=== PATIENT | female | born 1950 | race Caucasian/White ===

== ENCOUNTER → 2022-09-23 07:38 | Outpatient (REF) | payer MEDICARE, SELFPAY ==
[2022-09-23 07:49] LABS: MANUAL DIFF FLAG NO
--- NOTE | 2022-09-23 07:50 | ECG_ITS ---
Test Reason : htn Blood Pressure : / mmHG Vent. Rate : 085 BPM Atrial Rate : 085 BPM P-R Int : 144 ms QRS Dur : 128 ms QT Int : 408 ms P-R-T Axes : 043 -14 026 degrees QTc Int : 485 ms Normal sinus rhythm Premature atrial complexes Right bundle branch block Abnormal ECG No previous ECGs available Referred By: Elizabeth Domingo Electronically Signed By:JUANJO GRAHAM
[2022-09-23 08:16] LABS: Basophils Absolute Auto 0.1 X10*3/uL (0.0-0.2); Basophils Percent Auto 0.6 % (0-2); Eosinophils Absolute Auto 0.3 X10*3/uL (0.0-0.4); Eosinophils Percent Auto 2.8 % (0-4); Hematocrit 46.9 % (37.0-47.0); Hemoglobin 15.9 g/dl (12.0-16.0); Imm Gran Abs Auto 0.05 X10*3/uL (0.00-0.03); Imm Gran Pct Auto 0.5 % (0.0-0.4); Lymphocytes Absolute Auto 3.4 X10*3/uL (1.2-4.9); Lymphocytes Percent Auto 30.9 % (20-40); Mean Corpuscular HGB Conc 33.9 g/dl (31.0-35.0); Mean Corpuscular Hemoglobin 30.7 pg (27.0-33.0); Mean Corpuscular Volume 90.5 fL (80.0-98.0); Monocytes Absolute Auto 0.9 X10*3/uL (0.1-1.2); Monocytes Percent Auto 7.9 % (2-11); Neutrophils Absolute Auto 6.2 x10*3/uL (2.0-8.3); Neutrophils Percent Auto 57.3 % (45-73); Platelet Count 207 X10*3/uL (160-400); Red Blood Count 5.18 X10*6/uL (4.20-5.50); Red Cell Distribution Width 13.3 % (11.0-16.0); White Blood Count 10.8 X10*3/uL (4.8-10.8)
[2022-09-23 08:56] LABS: Alanine Aminotransferase 30 U/L (0-31); Albumin Level 4.7 g/dL (3.5-5.0); Alkaline Phosphatase 117 U/L (39-117); Anion Gap 16 (12-20); Aspartate Amino Transferase 29 U/L (5-31); Bilirubin Total 0.9 mg/dL (0.0-1.0); Blood Urea Nitrogen 18 mg/dL (9-16); Calcium 9.9 mg/dL (8.4-10.2); Carbon Dioxide 28 mmol/L (22-29); Chloride 105 mmol/L (96-108); Cholesterol 234 mg/dL; Estimated Glomerular Filt Rate > 60; Glucose Fasting 106 mg/dL (60-99); HDL Cholesterol 46 mg/dL; LDL Cholesterol Calculated 152 mg/dl; Potassium 4.6 mmol/L (3.3-5.1); Sodium 144 mmol/L (135-145); Total Protein 7.9 g/dL (6.5-8.0); Triglycerides 181 mg/dL
[2022-09-23 09:01] LABS: TSH reflex Free T4 4.33 uIU/mL (0.32-4.0); Vitamin D 25-OH Total 46.7 ng/mL (>30)
[2022-09-23 09:14] LABS: Folate 18.8 ng/mL (> or = 4.0); Vitamin B12 750 pg/mL (200-900)
[2022-09-23 09:42] LABS: Free T4 (Free Thyroxine) 0.87 ng/dL (0.71-1.85)
== END ==
LOC: HO.CARD 07:38
PROVIDERS: PCP Nurse Practitioner Family; Visit Provider Nurse Practitioner Family
DX: I10 Essential (primary) hypertension (principal); Z76.89 Persons encountering health services in other specified circumstances
CPT/HCPCS: 36415; 80053; 80061; 82306; 82607; 82746; 84439; 84443; 85025; 93005

== ENCOUNTER 2024-01-23 15:31 | Outpatient (AMB) | payer MEDICARE, SELFPAY ==
--- NOTE | 2024-01-23 15:33 | A.OFFVIS_ITS ---
Intake Vital Signs 01/23/24 15:38 Height 4 ft 11 in Weight 201 lb 2 oz BMI 40.6 BP 138/80 Blood Pressure Location Lt brachial Position Sitting Pulse 110 H Pulse Source Pulse Oximeter Pulse Oximetry (%) 98 Oxygen Delivery Method Room Air Intake Visit Reasons: AWV Intake Note: Patient is here for an Annual Wellness Visit. Postal Inspector Required: No Animal Control Licensing Worker: Animal Control Licensing Worker Present and Animal Control Licensing Worker offered & declined Accompanied by: Daughter Allergies green dye Adverse Reaction (Mild, Uncoded 01/23/24 15:55) Rash Medication List - Last Reconciled 01/23/24 by Stan Tovar MD atenolol 50 mg PO DAILY 90 days multivitamin 1 tab PO DAILY HPI AWV HPI Details Patient comes in today for her Annual Medicare Wellness Exam and follow up visit States that she currently feels okay She admits to not taking her Atenolol for the past 3 months States that she checks her blood pressure regularly and has noticed that her blood pressure often seems to be much lower than before and she stopped taking her Atenolol as she is concerned that her blood pressure may go too low States that in the past 3 months, she has taken her Atenolol no more than 2 to 3 times and eventually stopped taking them Notes that her systolic blood pressure lately has always been between 110 to 130 mm and often around the 118 to 120 mm rebeca States that she's had no recent symptoms of chest pains/pressure, SOB or palpitations She denies any headaches States that she frequently experiences dizziness but has been this way all her life as 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 Medical / Social History Reviewed Past Medical History Yes . [place] of Care / Care Team list updated Yes . Surgical/Hospitalization History Yes . Current Medications (including OTC and supplements) Yes . Family History Yes . Tobacco Control form Yes . AUDIT-C (Alcohol use) form Yes . Illicit drug use in Social History Yes . Current diagnosis of depression? No Appropriate PHQ2/PHQ9 completed Yes . Data entered by Roller Operator and reviewed by provider Home Safety Throw rugs? No Grab bars? No Raised toilet seats? No Working smoke detectors? Yes Working carbon monoxide detectors? Yes Data entered by Roller Operator and reviewed by provider Activities of Daily Living (ADLs) Difficulty bathing or showering? No Difficulty dressing? No Difficulty using the toilet? No Difficulty getting in and out of bed? No Difficulty walking? No Receives help from another person with any of the above tasks? No Instrumental Activities of Daily Living (IADLs) Uses the telephone without help Gets to places out of walking distance with help Goes shopping for groceries with help Prepares own meals without help Does own minor home maintenance without help Does own laundry without help Does own housework without help Manages own money without help Currently takes medications? Yes Takes medication without help End-of-Life Planning Discussed advance directive Yes Advance directive on file Discussed wishes expressed in advance directive agreed to following patient's wishes Fall Risk: Fall History Have you had any falls with injury in the past year? No . Have you had two or more falls in the past year? No . Fall Risk Assessment: No falls in the past year . HRA filled out by the patient, reviewed by Provider and scanned. [facility] Medical History (Updated 01/23/24 @ 16:54 by Stan Tovar MD) Morbid obesity with BMI of 40.0-44.9, adult Microtia of left ear GERD (gastroesophageal reflux disease) Mixed hyperlipidemia Essential hypertension Surgical History S/P right rotator cuff repair History of ear surgery History of hysterectomy Family History Father Diabetes Mother Lung cancer Brother Hemochromatosis Brother Hemochromatosis Social History Housing: Condominium Alcohol intake: never Patient Tobacco Use Status: Never used Tobacco Second Hand Smoke Exposure: No service: No Cognitive needs: Yes Hearing needs: No Vision needs: Yes Questionnaire Medicare Wellness Checkup [age] What gender do you identify with?: female During the past 4 weeks, how much have you been bothered by emotional problems such as feeling anxious, depressed, irritable, sad or downhearted, and blue?: slightly During the past 4 weeks, has your physical & emotional health limited your social activities with family, friends, neighbors, or groups?: not at all During the past 4 weeks, how much bodily pain have you generally had?: no pain During the past 4 weeks, was someone available to help you if you needed & wanted help?: yes, as much as I wanted During the past 4 weeks, what was the hardest physical activity you could do for at least 2 minutes?: moderate Can you get to places out of walking distance without help? (For eg., can you travel alone on buses, taxis or drive your car?): No Can you go shopping for groceries or clothes without someone's help?: Yes (Daughter drop her off at the store) Can you prepare your own meals?: Yes Can you do your housework without help?: Yes Because of any health problems, do you need the help of another person with your personal care needs such as eating, bathing, dressing or getting around the house?: No Can you handle your own money without help?: Yes During the past 4 weeks, how would you rate your health in general?: good During the past 4 weeks how have things been going for you?: pretty well Are you having difficulties driving your car?: not applicable, I don't use a car Do you always fasten your seat belt when you are in a car?: yes, usually During past 4 weeks, have you been bothered by the following: never: Sexual problems?, Trouble eating well? and Teeth or denture problems? and sometimes: Falling or dizzy when standing up, Problems using the telephone? and Tiredness or fatigue? Have you fallen 2 or more times in the past year?: No Are you afraid of falling?: No Are you a smoker?: no During the past 4 weeks, how many drinks of wine, beer, or other alcoholic beverages did you have?: no alcohol at all Do you exercise for about 20 minutes 3 or more times a week?: no, I usually do not exercise this much Have you been given information to help with the following?: no: Hazards in your house that might hurt you? and no: Keeping track of your medications? How often do you have trouble taking medicines the way you have been told to take them?: I always take medicine as prescribed How confident are you that you can control & manage most of your health problems?: very confident What is your race?: White Mini Mental State Exam (MMSE) Orientation What is the (year) (season) (date) (day) (month)?: year, season, date, day and month Where are we (state) (county) (town or city) (hospital) (floor)?: state, county, town or city, hospital/clinic and floor Score Score: 10 Activity of Daily Living Bathing - sponge bath, tub bath or shower: receives no assistance (gets in/out by self, if usual bathing means Dressing - getting clothes from closets & drawers, including inner/outer garments & fasteners.: gets clothes & gets completely dressed without help Toileting - going to the 'toilet room' for urine/bowel elimination & cleaning self/arranging clothes: goes to toilet room, cleans self, arranges clothes without help Transfer: moves in & out of bed and chair without help (may use support object) Continence: controls urination/bowel movements completely by self Feeding: feeds self without help Total Score: 0 Information obtained from: patient Using telephone: independent Traveling: needs assistance Shopping: needs assistance Preparing meals: independent Housework: independent Taking medicine: independent Managing money: independent PHQ-9 Over the last 2 weeks, how often have you been bothered by any of the following problems? 1. Little interest or pleasure in doing things: not at all 2. Feeling down, depressed, or hopeless: not at all 3. Trouble falling or staying asleep, or sleeping too much: several days 4. Feeling tired or having little energy: several days 5. Poor appetite or overeating: nearly every day 6. Feeling bad about yourself - or that you are a failure or have let yourself or your family down: not at all 7. Trouble concentrating on things, such as reading the newspaper or watching television: more than half the days 8. Moving or speaking so slowly that other people could have noticed. Or the opposite - being so fidgety or restless that you have been moving around a lot more than usual: not at all 9. Thoughts that you would be better off or of hurting yourself in some way: not at all Total score: 7 Depression Screening Interpretation: Positive Depression Screening Follow-up: Declines treatment Depression Screening Done: Yes 23638 - PHQ-9 Billing: Yes Source: Developed by Drs. Richmond Moore, Lucrecia Lan, Gopi Martinez and colleagues, with an educational flor from [employer]. Thrive Questionnaire Date Thrive assessed: 01/23/24 I am a: Patient What is your living situation today?: I have a steady place to live Within the past 12 months, did the food you bought not last and you didn't have the money to get more?: Never true Within the past 12 months, did you worry whether your food would run out before you got money to buy more?: Never true Do you have trouble paying for medicines?: No Do you have trouble getting transportation to medical appointments?: No Do you have trouble paying your heating and electricity bill?: No Do you have trouble taking care of your child, family member or friend?: No Do you have trouble with day-to-day activities such as bathing, preparing meals, shopping, managing finances, etc.?: No Are you currently unemployed and looking for a job?: No Are you interested in more education?: No Currently or been in a relationship where the following occur: no concerns reported THRIVE Score: 0 KRYSTIAN-7 AMB Questionnaire KRYSTIAN-7 Date KRYSTIAN - 7 assessed: 01/23/24 Feeling nervous, anxious, or on edge: 0 = Not at all Not being able to stop or control worryin = Not at all Worrying too much about different things: 0 = Not at all Trouble relaxin = Not at all Being so restless that it is hard to sit still: 0 = Not at all Becoming easily annoyed or irritable: 0 = Not at all Feeling afraid as if something awful might happen: 0 = Not at all Total KRYSTIAN-7 score (0-4 normal; 5-9 mild; 10-14 moderate; 15-21 severe): 0 Source: Developed by Drs. Richmond LLucrecia Jensen Kurt Kroenke and colleagues, with an educational flor from [employer]. AUDIT C Alcohol Use Questionnaire (AUDIT-C) 1. How often do you have a drink containing alcohol?: Never 2. How many drinks containing alcohol do you have on a typical day when you are drinking?: 1 or 2 3. How often do you have six or more drinks on one occasion?: Never Total Score: 0 Score Reviewed/Action Taken: Yes Review of Systems Const Denies chills, Denies fatigue, Denies fever(s), Denies headache(s) and Denies malaise Eyes Denies blurry vision, Denies change in vision, Denies irritation and Denies itchy eyes ENT Denies dysphagia, Denies dizziness, Denies otalgia, Denies headache(s), Denies nasal congestion, Denies neck pain, Denies odynophagia, Denies sinus pain and Denies sore throat Card Denies chest pain, Denies rapid heart rate, Denies irregular heart rhythm, Denies palpitations and Denies dyspnea Resp Denies chest congestion, Denies cough, Denies dyspnea and Denies wheezing GI Denies abdominal pain, Denies bloating, Denies constipation, Denies dysphagia, Denies heartburn, Denies diarrhea, Denies nausea, Denies odynophagia and Denies vomiting Denies hematuria, Denies change in libido, Denies urinary frequency, Denies dysuria, Denies urinary incontinence and Denies urinary urgency Musc Denies back pain, Denies arthralgias, Denies joint swelling, Denies muscle weakness and Denies neck pain Skin/Breast Denies breast pain, Denies breast mass, Denies change in pigmentation, Denies lesions, Denies rash and Denies unusual bruising Neuro Denies dizziness, Denies headache(s) and Denies paresthesias Psych Denies anxiety, Denies change in libido, Denies depression and Denies homicidal ideation Endo Denies change in libido, Denies fatigue and Denies palpitations Abrahan/Lymph Denies easy bruising Aller/Immun Denies itchy eyes and Denies wheezing Physical Exam Vital Signs: Last Vital Signs Pulse 110 H 01/23/24 15:38 BP 138/80 01/23/24 15:38 Pulse Ox 98 01/23/24 15:38 Oxygen Delivery Method Room Air 01/23/24 15:38 BMI result Body Mass Index 40.6 IPPE/SWV: Balance Romberg Yes . Tandem walk Yes . Walk and Turn Yes . Rise from sit to stand Yes . Vision Corrective lens No Vision screen pass Hearing Whisper test fail . Urinary incont. no. EKG Not clinically necessary. Const General: no acute distress, alert and awake Orientation/consciousness: patient oriented x3 HEENT Head: Yes normocephalic and Yes atraumatic Ears: external ears normal, TM's normal bilaterally and EAC's normal General nose exam: No nasal discharge present Face and sinus: Yes normal facial exam and Yes sinuses nontender Teeth and gingiva: dentition normal Throat: Yes posterior oropharynx normal and Yes tonsils normal (no TP congestion) Eyes Eyelids: Yes eyelids normal Conjunctivae: conjunctivae normal Pupils: Equal, round and reactive pupils present EOM: EOMs intact bilaterally Neck Neck: Yes no lymphadenopathy and Yes supple Thyroid: Thyroid normal Resp Auscultation: clear to auscultation bilaterally, no rales and no wheezes Cardio Rate: tachycardic Rhythm: regular rhythm Heart sounds: no murmurs GI Palpation (GI): Soft to palpation, nontender and No hepatosplenomegaly present Auscultation: normal bowel sounds General: Yes no CVA tenderness Back/Spine/Pelvis Back: no CVA tenderness Thoracic/Lumbar Spine: thoracic and lumbar spine normal to inspection Skin Lesions: no lesions Rashes: no rashes Neuro General: patient oriented x3, moves all extremities, no focal motor deficits and CN's II-XI intact bilaterally Cranial nerves: Yes Equal, round and reactive pupils present Cognition (Neuro): normal cognition Gait exam (Neuro): Normal gait present Extrem General: Yes no clubbing, cyanosis or edema Assessment & Plan Assessment & Plan (1) Medicare annual wellness visit, subsequent: Code(s): Z00.00 - Encounter for general adult medical examination without abnormal f indings Plan: HRA form discussed and completed with patient - form will be scanned into patient's chart Patient has and continues to decline going for screening colonoscopy, annual mammgram and routine pap smear/gynecology exam (2) Essential hypertension: Code(s): I10 - Essential (primary) hypertension Plan: Reinforced low sodium diet - goal is systolic BP of 130 to 140 mm or less She was on Atenolol 50 mg QD but admits that she has literally stopped taking her Rx about 3 months ago as she was concerned about her blood pressure getting too low She is advised to HOLD OFF on starting back on her Rx at this time and to continue monitoring her blood pressure regularly (3) Mixed hyperlipidemia: Code(s): E78.2 - Mixed hyperlipidemia Plan: She is advised that her cholesterol levels were elevated when she had her labs done early last year Reinforced low cholesterol diet She has expressed her reluctance in taking any Rx for cholesterol as she strongly believes that cholesterol-lowering medications can cause severe muscle pains Will have her recheck her labs and fasting lipids ANGE for follow up (4) GERD (gastroesophageal reflux disease): Code(s): K21.9 - Gastro-esophageal reflux disease without esophagitis Qualifiers: Esophagitis presence: without esophagitis Qualified Code(s): K21.9 - Gastro-esophageal reflux disease without esophagitis Plan: Dietary restrictions reinforced She used to take Omeprazole years ago but states that she has not needed anything for heartburns over the past few years (5) Microtia of left ear: Code(s): Q17.2 - Microtia Plan: This is a congenital condition (6) Morbid obesity with BMI of 40.0-44.9, adult: Code(s): E66.01 - Morbid (severe) obesity due to excess calories; Z68.41 - Body mass ind ex [BMI] 40.0-44.9, adult Plan: Reinforced diet/exercise as tolerated/lose weight Plan To return in 1 year for her next Medicare Annual Wellness Exam Orders: Orders Complete Blood Count Auto Diff Today D64.9 - Anemia, unspecified Lipid Panel Today E78.00 - Pure hypercholesterolemia, unspecified UA CC w/rflx Micro + Cult Today R30.0 - Dysuria TSH reflex Free T4 Today E78.00 - Pure hypercholesterolemia, unspecified Vitamin D 25-OH Total Today E55.9 - Vitamin D deficiency, unspecified Comprehensive [place]. Panel Fast Today E78.00 - Pure hypercholesterolemia, unspecified Vitamin B12 and Folate Today E53.8 - Deficiency of other specified B group vitamins Magnesium Today E83.42 - Hypomagnesemia Quality Reporting (2019) Depression/Bipolar (159/160/161/177) PHQ-9: Total score: 7 Coding Level of Care Code Medicare Subsequent (G0439) Est Pt Level 4 (27197) Diagnoses Medicare annual wellness visit, subsequent Z00.00 Essential hypertension I10 Mixed hyperlipidemia E78.2 Gastroesophageal reflux disease without esophagitis K21.9 Esophagitis presence: without esophagitis Microtia of left ear Q17.2 Morbid obesity with BMI of 40.0-44.9, adult E66.01; Z68.41
[2024-01-23 15:38] VITALS: BP 138/80; PULSE 110; O2SAT 98; BMI 40.6
== END 2024-01-23 16:16 | disposition home or self-care (01) ==
PROVIDERS: PCP Nurse Practitioner Family; Visit Provider Internal Medicine
DX: Z00.00 Encounter for general adult medical examination without abnormal findings (principal); E66.01 Morbid (severe) obesity due to excess calories; Z68.41 Body mass index [BMI] 40.0-44.9, adult; I10 Essential (primary) hypertension; E78.2 Mixed hyperlipidemia; K21.9 Gastro-esophageal reflux disease without esophagitis; Q17.2 Microtia
CPT/HCPCS: 99214; G0439

== ENCOUNTER 2024-01-24 09:20 | Outpatient (REF) | payer MEDICARE, SELFPAY ==
[2024-01-24 09:38] LABS: MANUAL DIFF FLAG NO
[2024-01-24 10:02] LABS: Basophils Absolute Auto 0.1 X10*3/uL (0.0-0.2); Basophils Percent Auto 0.9 % (0-2); Eosinophils Absolute Auto 0.3 X10*3/uL (0.0-0.4); Eosinophils Percent Auto 2.9 % (0-4); Hematocrit 47.4 % (37.0-47.0); Hemoglobin 16.1 g/dl (12.0-16.0); Imm Gran Abs Auto 0.04 X10*3/uL (0.00-0.03); Imm Gran Pct Auto 0.4 % (0.0-0.4); Lymphocytes Absolute Auto 2.6 X10*3/uL (1.2-4.9); Lymphocytes Percent Auto 27.7 % (20-40); Mean Corpuscular Hemoglobin 31.2 pg (27.0-33.0); Mean Corpuscular Volume 91.9 fL (80.0-98.0); Mean Platelet Volume 10.9 fL (9.4-12.3); Monocytes Absolute Auto 0.8 X10*3/uL (0.1-1.2); Monocytes Percent Auto 8.1 % (2-11); Neutrophils Absolute Auto 5.6 x10*3/uL (2.0-8.3); Platelet Count 216 X10*3/uL (160-400); Red Blood Count 5.16 X10*6/uL (4.20-5.50); Red Cell Distribution Width 13.8 % (11.0-16.0); White Blood Count 9.3 X10*3/uL (4.8-10.8)
[2024-01-24 10:37] LABS: Alanine Aminotransferase 58 U/L (0-31); Albumin Level 4.5 g/dL (3.5-5.0); Alkaline Phosphatase 114 U/L (39-117); Anion Gap 14 (12-20); Aspartate Amino Transferase 50 U/L (5-31); Bilirubin Total 0.9 mg/dL (0.0-1.0); Blood Urea Nitrogen 11 mg/dL (9-16); Carbon Dioxide 28 mmol/L (22-29); Chloride 105 mmol/L (96-108); Cholesterol 229 mg/dL (<200); Estimated Glomerular Filt Rate > 60; Glucose Fasting 100 mg/dL (60-99); HDL Cholesterol 49 mg/dL (>40); LDL Cholesterol Calculated 148 mg/dL (<100); Magnesium 2.3 mg/dL (1.6-2.6); Potassium 4.6 mmol/L (3.3-5.1); Sodium 142 mmol/L (135-145); Total Protein 8.3 g/dL (6.5-8.0); Triglycerides 162 mg/dL (<150)
[2024-01-24 10:53] LABS: TSH reflex Free T4 2.93 uIU/mL (0.32-4.0)
[2024-01-24 12:10] LABS: Folate 18.6 ng/mL (> or = 4.0)
[2024-01-24 13:38] LABS: Vitamin B12 885 pg/mL (200-900)
== END 2024-01-24 09:21 | disposition home or self-care (01) ==
LOC: HO.LAB 09:20
PROVIDERS: PCP Internal Medicine; Visit Provider Internal Medicine
DX: E78.00 Pure hypercholesterolemia, unspecified (principal); R30.0 Dysuria; E55.9 Vitamin D deficiency, unspecified; E53.8 Deficiency of other specified B group vitamins; E83.42 Hypomagnesemia; D64.9 Anemia, unspecified
CPT/HCPCS: 36415; 80053; 80061; 82306; 82607; 82746; 83735; 84443; 85025

== ENCOUNTER 2025-05-30 15:52 | Outpatient (AMB) | payer MEDICARE, SELFPAY ==
[2025-05-30 16:22] VITALS: BP 136/80; PULSE 102; O2SAT 94; BMI 40.5
--- NOTE | 2025-05-30 16:22 | A.OFFPC_ITS ---
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 Accompanied by: Self / Same As Patient Allergies green dye Adverse Reaction (Mild, Uncoded 05/31/25 04:18) Rash Medication List - Last Reconciled 05/31/25 by Stan Tovar MD multivitamin 1 tab PO DAILY Tobacco use date assessed: 05/30/25 Fall risk assessment: No Falls in past year Last assessed Fall Risk: 05/30/25 Dental Screening Dental Screen Date: 05/30/25 Did you have a dental visit in the last 12 months?: No Did you have a dental problem in the last 6 months where you did not have access to dental care?: No Was dental information given to patient?: No HPI f/u HPI Details Patient comes in today for her follow-up visit - she was last seen here over a year ago in December 2023 States that she feels okay She denies any headaches or dizziness Denies any chest pains, no shortness of breath No nausea/vomiting, no abdominal pain No change in bowel habits noted She had follow-up labs done last year, right after her office visit, and has had no other follow-up labs done since [facility] Medical History Morbid obesity with BMI of 40.0-44.9, adult Microtia of left ear GERD (gastroesophageal reflux disease) Mixed hyperlipidemia Essential hypertension Surgical History S/P right rotator cuff repair History of ear surgery History of hysterectomy Family History Father Diabetes Mother Lung cancer Brother Hemochromatosis Brother Hemochromatosis Social History Housing: Condominium Alcohol intake: never Patient Tobacco Use Status: Never used Tobacco Second Hand Smoke Exposure: No service: No Cognitive needs: Yes Hearing needs: No Vision needs: Yes Questionnaire PHQ-9 Over the last 2 weeks, how often have you been bothered by any of the following problems? 1. Little interest or pleasure in doing things: not at all 2. Feeling down, depressed, or hopeless: not at all 3. Trouble falling or staying asleep, or sleeping too much: not at all 4. Feeling tired or having little energy: not at all 5. Poor appetite or overeating: not at all 6. Feeling bad about yourself - or that you are a failure or have let yourself or your family down: not at all 7. Trouble concentrating on things, such as reading the newspaper or watching television: not at all 8. Moving or speaking so slowly that other people could have noticed. Or the opposite - being so fidgety or restless that you have been moving around a lot more than usual: not at all 9. Thoughts that you would be better off or of hurting yourself in some way: not at all Total score: 0 Depression Screening Interpretation: Negative Depression Screening Done: Yes 27103 - PHQ-9 Billing: Yes Source: Developed by Drs. Richmond Moore, Lucrecia Lan, Gopi Martinez and colleagues, with an educational flor from [employer]. Thrive Questionnaire Date Thrive assessed: 05/30/25 I am a: Patient What is your living situation today?: I have a steady place to live Within the past 12 months, did the food you bought not last and you didn't have the money to get more?: Never true Within the past 12 months, did you worry whether your food would run out before you got money to buy more?: Never true Do you have trouble paying for medicines?: No Do you have trouble getting transportation to medical appointments?: I choose not to answer this question Do you have trouble paying your heating and electricity bill?: No Do you have trouble taking care of your child, family member or friend?: No Do you have trouble with day-to-day activities such as bathing, preparing meals, shopping, managing finances, etc.?: No Are you currently unemployed and looking for a job?: No Are you interested in more education?: No Please select the resources that you would like help with: None Currently or been in a relationship where the following occur: No concerns reported THRIVE Score: 0 AUDIT C Alcohol Use Questionnaire (AUDIT-C) 1. How often do you have a drink containing alcohol?: Never 3. How often do you have six or more drinks on one occasion?: Never Total Score: 0 Score Reviewed/Action Taken: Yes KRYSTIAN-7 AMB Questionnaire KRYSTIAN-7 Date KRYSTIAN - 7 assessed: 05/30/25 Feeling nervous, anxious, or on edge: 0 = Not at all Not being able to stop or control worryin = Not at all Worrying too much about different things: 0 = Not at all Trouble relaxin = Not at all Being so restless that it is hard to sit still: 0 = Not at all Becoming easily annoyed or irritable: 0 = Not at all Feeling afraid as if something awful might happen: 0 = Not at all Total KRYSTIAN-7 score (0-4 normal; 5-9 mild; 10-14 moderate; 15-21 severe): 0 Source: Developed by Drs. Richmond Moore, Lucrecia Lan, Gopi Martinez and colleagues, with an educational flor from [employer]. Review of Systems Const Denies chills, Denies fatigue, Denies fever(s) and Denies headache(s) ENT Denies dysphagia, Denies dizziness, Denies otalgia, Denies headache(s), Denies neck pain, Denies odynophagia and Denies sore throat Card Denies chest pain, Denies irregular heart rhythm, Denies palpitations and Denies dyspnea Resp Denies chest congestion, Denies cough, Denies dyspnea and Denies wheezing GI Denies abdominal pain, Denies constipation, Denies dysphagia, Denies heartburn, Denies diarrhea, Denies nausea, Denies odynophagia and Denies vomiting Denies difficulty voiding, Denies nocturia, Denies dysuria and Denies urinary urgency Musc Denies back pain, Denies arthralgias and Denies neck pain Skin/Breast Denies rash Neuro Denies dizziness, Denies headache(s) and Denies paresthesias Psych Denies anxiety and Denies depression Endo Denies fatigue and Denies palpitations Abrahan/Lymph Denies easy bruising Aller/Immun Denies wheezing Physical exam (Primary Care) Vital Signs: Last Vital Signs Pulse 102 H 05/30/25 16:22 BP 136/80 05/30/25 16:22 Pulse Ox 94 05/30/25 16:22 Oxygen Delivery Method Room Air 05/30/25 16:22 BMI result Body Mass Index 40.5 Tobacco/Smoking Status: Tobacco use Status Tobacco use date assessed 05/30/25 05/30/25 16:30 Patient Tobacco Use Status Never used Tobacco 05/30/25 16:30 PHQ-9: PHQ-9 Score PHQ-9: Total score 0 05/30/25 17:10 Depression Screening Interpretation: Negative Thrive Assessment: Date of Thrive Assessment Date Thrive assessed 05/30/25 05/30/25 16:30 Currently or been in a relationship where the following occur: No concerns reported Const General: no acute distress and alert HENMT Ears: TM's normal bilaterally and EAC's normal Throat: Yes posterior oropharynx normal and Yes tonsils normal (no TP congestion) Neck Neck: Yes supple and No lymphadenopathy Thyroid: Thyroid normal Resp Auscultation: clear to auscultation bilaterally, no rales and no wheezes Cardio Rate: regular rate Rhythm: regular rhythm Heart sounds: no murmurs GI Palpation (GI): Soft to palpation and nontender Auscultation: normal bowel sounds General: Yes no CVA tenderness Back/Spine/Pelvis Back: no CVA tenderness Thoracic/Lumbar Spine: No lumbar spinal tenderness Skin Rashes: no rashes Extrem General: Yes no clubbing, cyanosis or edema Results Reviewed Results Reviewed: Laboratory Tests 09/23/22 01/24/24 07:47 09:37 WBC 9.3 Hgb 16.1 H Hct 47.4 H Plt Count 216 Sodium 142 Potassium 4.6 Creatinine 0.86 Estimated GFR > 60 Fasting Glucose 100 H Calcium 10.0 Magnesium 2.3 AST 50 H ALT 58 H Triglycerides 162 H Cholesterol 229 H LDL Cholesterol, Calc 148 H HDL Cholesterol 49 Vitamin B12 885 25-OH Vitamin D Total 67.0 Free T4 0.87 TSH 2.93 Coding Level of Care Code Est Pt Level 4 (92784) Diagnoses Essential hypertension I10 Mixed hyperlipidemia E78.2 Gastroesophageal reflux disease without esophagitis K21.9 Esophagitis presence: without esophagitis Elevated LFTs R79.89 Microtia of left ear Q17.2 Morbid obesity with BMI of 40.0-44.9, adult E66.01; Z68.41 Additional Codes PHQ-9 - 02105 - PHQ-9 Billing: Yes ([id number]) Assessment & Plan Assessment & Plan (1) Essential hypertension: Code(s): I10 - Essential (primary) hypertension Category: Medical Plan: Reinforced low sodium diet - goal is systolic BP of 130 to 140 mm or less She was on Atenolol 50 mg QD but she self-discontinued her Rx early last year as she was concerned about her blood pressure getting too low She was then advised to HOLD OFF on starting back on her Rx when she was seen last year as her blood pressure was acceptable at the time and to just continue monitoring her blood pressure regularly Her blood pressure today is still within acceptable parameters so she does not appear to require taking any antihypertensives at this time (2) Mixed hyperlipidemia: Code(s): E78.2 - Mixed hyperlipidemia Category: Medical Plan: She is advised that her cholesterol levels were still elevated when she had her labs done last year and her numbers are mostly similar to the year before that, with her total cholesterol at 229 mg/dl and LDL cholesterol at 148 mg/dl Reinforced low cholesterol diet She again expressed her reluctance at taking Rx for her cholesterol as she still strongly believes that the cholesterol-lowering medications can cause severe muscle pains Will have her recheck her labs and fasting lipids in 6 months for follow up (3) GERD (gastroesophageal reflux disease): Code(s): K21.9 - Gastro-esophageal reflux disease without esophagitis Category: Medical Qualifiers: Esophagitis presence: without esophagitis Qualified Code(s): K21.9 - Gastro-esophageal reflux disease without esophagitis Plan: Dietary restrictions reinforced She used to take Omeprazole years ago but states that she has not needed anything for heartburns over the past few years as she's had no flare ups of her symptoms (4) Elevated LFTs: Code(s): R79.89 - Other specified abnormal findings of blood chemistry Category: Medical Plan: She is cautioned that her LFTs were elevated on her labs done last year and advised that this is likely related to her weight (hepatosteatosis) but may also be partly due to her high cholesterol She denies any abdominal pain or acute GI symptoms Will continue to monitor her LFTs regularly (5) Microtia of left ear: Code(s): Q17.2 - Microtia Category: Medical Plan: This is a congenital condition (6) Morbid obesity with BMI of 40.0-44.9, adult: Code(s): E66.01 - Morbid (severe) obesity due to excess calories; Z68.41 - Body mass index [BMI] 40.0-44.9, adult Category: Medical Plan: Reinforced diet/exercise as tolerated/lose weight Plan Follow up in 6 months Orders: Orders UA CC w/rflx Micro + Cult 6 Months R30.0 - Dysuria Complete Blood Count Auto Diff 6 Months D64.9 - Anemia, unspecified Comprehensive [place]. Panel Fast 6 Months E78.00 - Pure hypercholesterolemia, unspecified Lipid Panel 6 Months E78.00 - Pure hypercholesterolemia, unspecified TSH reflex Free T4 6 Months E78.00 - Pure hypercholesterolemia, unspecified
== END 2025-05-30 17:12 | disposition home or self-care (01) ==
LOC: HO.HMCH 15:52
PROVIDERS: PCP Internal Medicine; Visit Provider Internal Medicine
DX: I10 Essential (primary) hypertension (principal); E78.2 Mixed hyperlipidemia; E66.01 Morbid (severe) obesity due to excess calories; Z68.41 Body mass index [BMI] 40.0-44.9, adult; K21.9 Gastro-esophageal reflux disease without esophagitis; R79.89 Other specified abnormal findings of blood chemistry; Q17.2 Microtia

== ENCOUNTER → 2025-05-30 15:52 | Outpatient (BNVA) | payer MEDICARE, SELFPAY | PROVIDERS: PCP Internal Medicine; Visit Provider Internal Medicine | DX: I10 Essential (primary) hypertension (principal); E78.2 Mixed hyperlipidemia; K21.9 Gastro-esophageal reflux disease without esophagitis; R79.89 Other specified abnormal findings of blood chemistry; Q17.2 Microtia; E66.01 Morbid (severe) obesity due to excess calories; R30.0 Dysuria; D64.9 Anemia, unspecified; E78.00 Pure hypercholesterolemia, unspecified; Z68.41 Body mass index [BMI] 40.0-44.9, adult | CPT/HCPCS: 96127; 99212 ==